=== PATIENT | female | born 1990 | race Caucasian/White ===

== ENCOUNTER 2022-01-09 10:38 | Emergency (ER) | payer MEDICAID ==
[~2022-01-09] VITALS: Ht 160 cm; Wt 115.0 kg
[2022-01-09 11:06] LABS: BILIRUBIN,URINE NEGATIVE (NEGATIVE); CLARITY,URINE CLEAR; COLOR,URINE YELLOW; GLUCOSE, URINE (UA) NEGATIVE (NEGATIVE); KETONES,URINE NEGATIVE (NEGATIVE); LEUKOCYTE ESTERASE ,URINE NEGATIVE (NEGATIVE); NITRITE,URINE NEGATIVE (NEGATIVE); PROTEIN,URINE 1+ (NEGATIVE)
--- NOTE | 2022-01-09 11:11 | ED Abdominal Pain ---
General Chief Complaint: Abdominal/GI Problems Stated Complaint: ABD PAIND Source of Information: Patient Exam Limitations: No Limitations (MAURI MERRILL) History of Present Illness Date Seen by Provider: Jan 09, 2022 Time Seen by Provider: 11:09 Initial Comments Patient is a 31-year-old female with a history of cholecystectomy, who presents ED with generalized abdominal pain. Pain appears to worst above her umbilicus. Started this morning when she woke up. Pain is constant described as sharp rated 10 out of 10. Patient noted hardness to her mid abdomen. She denies nausea, vomiting, diarrhea or urinary symptoms. Patient Has not eaten today. Denies of any chest pain, shortness of breath, visual changes, vaginal bleeding, concern for or vaginal discharge, headache, dizziness (MAURI MERRILL) Allergies and Home Medications Allergies Coded Allergies: Sulfa (Sulfonamide Antibiotics) (Verified Allergy, Unknown, 01/09/22) Patient Home Medication List Home Medication List Reviewed: Yes (MAURI MERRILL) Hydrocodone/Acetaminophen (Hydrocodone-Acetamin 5-325 mg) 5 Mg-325 Mg Tablet, 1 TAB PO Q4H PRN for PAIN-MODERATE (5-7) Prescribed by: DORA BENEDICT on 01/09/22 1214 Review of Systems Review of Systems Constitutional: No chills, No diaphoresis, No malaise EENTM: No Blurred Vision, No Eye Pain Respiratory: Denies Cough, Denies Orthopnea, Denies SOA With Exertion, Denies SOA at Rest Cardiovascular: Denies Chest Pain Gastrointestinal: Abdominal Pain; Denies Diarrhea, Denies Nausea, Denies Vomiting Genitourinary: Denies Burning, Denies Discharge, Denies Drainage, Denies Frequency Musculoskeletal: No back pain, No joint pain Skin: No change in color, No change in hair/nails Psychiatric/Neurological: Denies Anxiety, Denies Depressed (MAURI MERRILL) All Other Systems Reviewed Negative Unless Noted: Yes (MAURI MERRILL) Physical Exam Vital Signs Vital Signs - First Documented 01/09/22 10:58 Temp 37.0 Pulse 84 Resp 16 B/P (MAP) 139/88 (105) (ASHLEIGH COBB MD) Vital Signs Capillary Refill : (MAURI MERRILL) Height/Weight/BMI Height: '" Weight: lbs. oz. kg; BMI Method: General Appearance: WD/WN, no apparent distress HEENT: PERRL/EOMI, normal ENT inspection, TMs normal, pharynx normal Neck: non-tender, full range of motion, supple Respiratory: chest non-tender, lungs clear, normal breath sounds, no respiratory distress, no accessory muscle use Cardiovascular: regular rate, rhythm, no edema, no gallop, no JVD Gastrointestinal: normal bowel sounds, soft, no organomegaly, tenderness (Tenderness above the umbilicus with no obvious mass. Left lower quadrant tenderness, epigastric tenderness. Normal bowel sounds throughout.) Extremities: normal range of motion, non-tender, normal inspection, no pedal edema Back: normal inspection, no CVA tenderness Neurologic/Psychiatric: scutcher tender II-XII nml as tested, no motor/sensory deficits, alert, normal mood/affect Skin: normal color, warm/dry (MAURI MERRILL) Progress/Results/Core Measures Results/Orders Lab Results Laboratory Tests Test 01/09/22 11:00 01/09/22 11:10 Range/Units Urine Color YELLOW Urine Clarity CLEAR Urine pH 6.0 5-9 Urine Specific [place] 1.025 H 1.016-1.022 Urine Protein 1+ H NEGATIVE Urine Glucose (UA) NEGATIVE NEGATIVE Urine Ketones NEGATIVE NEGATIVE Urine Nitrite NEGATIVE NEGATIVE Urine Bilirubin NEGATIVE NEGATIVE Urine Urobilinogen 0.2 < = 1.0 MG/DL Urine Leukocyte Esterase NEGATIVE NEGATIVE Urine RBC (Auto) NEGATIVE NEGATIVE Urine RBC NONE /HPF Urine WBC RARE /HPF Urine Squamous Epithelial Cells 2-5 /HPF Urine Crystals NONE /LPF Urine Bacteria TRACE /HPF Urine Casts NONE /LPF Urine Mucus MODERATE H /LPF Urine Culture Indicated NO Urine Test NEGATIVE NEGATIVE White Blood Count 6.6 4.3-11.0 10^3/uL Red Blood Count 4.74 3.80-5.11 10^6/uL Hemoglobin 14.1 11.5-16.0 g/dL Hematocrit 41 35-52 % Mean Corpuscular Volume 87 80-99 fL Mean Corpuscular Hemoglobin 30 25-34 pg Mean Corpuscular Hemoglobin Concent 34 32-36 g/dL Red Cell Distribution Width 12.5 10.0-14.5 % Platelet Count 218 130-400 10^3/uL Mean Platelet Volume 10.1 9.0-12.2 fL Immature Granulocyte % (Auto) 0 % Neutrophils (%) (Auto) 49 42-75 % Lymphocytes (%) (Auto) 35 12-44 % Monocytes (%) (Auto) 10 0-12 % Eosinophils (%) (Auto) 4 0-10 % Basophils (%) (Auto) 2 0-10 % Neutrophils # (Auto) 3.3 1.8-7.8 10^3/uL Lymphocytes # (Auto) 2.3 1.0-4.0 10^3/uL Monocytes # (Auto) 0.6 0.0-1.0 10^3/uL Eosinophils # (Auto) 0.3 0.0-0.3 10^3/uL Basophils # (Auto) 0.1 0.0-0.1 10^3/uL Immature Granulocyte # (Auto) 0.0 0.0-0.1 10^3/uL Sodium Level 139 135-145 MMOL/L Potassium Level 4.5 3.6-5.0 MMOL/L Chloride Level 104 98-107 MMOL/L Carbon Dioxide Level 22 21-32 MMOL/L Anion Gap 13 5-14 MMOL/L Blood Urea Nitrogen 11 7-18 MG/DL Creatinine 0.70 0.60-1.30 MG/DL Estimat Glomerular Filtration Rate 117 BUN/Creatinine Ratio 16 Glucose Level 91 70-105 MG/DL Calcium Level 9.5 8.5-10.1 MG/DL Corrected Calcium 9.3 8.5-10.1 MG/DL Total Bilirubin 0.4 0.1-1.0 MG/DL Aspartate Amino Transf (AST/SGOT) 27 5-34 U/L Alanine Aminotransferase (ALT/SGPT) 34 0-55 U/L Alkaline Phosphatase 77 40-136 U/L Total Protein 7.9 6.4-8.2 GM/DL Albumin 4.3 3.2-4.5 GM/DL Lipase 29 8-78 U/L (ASHLEIGH COBB MD) My Orders Orders - ASHLEIGH COBB MD Ua Culture If Indicated (01/09/22 10:45) (ASHLEIGH COBB MD) Medications Given in ED Current Medications Medications Dose Ordered Sig/Wesley Route Start Time Stop Time Status Last Admin Dose Admin Iohexol 100 ml ONCE ONCE IV 01/09/22 11:15 01/09/22 11:16 DC 01/09/22 11:41 100 ML Sodium Chloride 100 ml ONCE ONCE IV 01/09/22 11:15 01/09/22 11:16 DC 01/09/22 11:41 100 ML (ASHLEIGH COBB MD) Vital Signs/I&O 01/09/22 01/09/22 10:58 12:20 Temp 37.0 37.0 Pulse 84 80 Resp 16 16 B/P (MAP) 139/88 (105) 135/95 (ASHLEIGH COBB MD) Departure Communication (PCP) Patient with left-sided abdominal tenderness and tenderness above the umbilicus. Slight induration but no obvious redness or swelling. She is concerned for possible hernia which may have diastases recti as when she elevates her head up while laying down slight prominence noted to the mid abdomen. Lab work was otherwise unremarkable. Due to her severe pain on palpations CT abdomen pelvis was ordered which was unremarkable. Was given a dose of pain medication. Denies nausea, vomiting, diarrhea. History of cholecystectomy. Due to reassuring lab work negative CT scan we will treat pain conservatively outpatient. If any worsening pain may return back to ED for further evaluation. She does not appear toxic or septic. Vital signs stable. (MAURI MERRILL) Impression Primary Impression: Abdominal pain Disposition: 01 HOME, SELF-CARE Condition: Stable Departure-Patient Inst. Decision time for Depature: 12:12 (MAURI MERRILL) Referrals: [facility]/[employer] [facility],LOCAL PHYSICIAN (PCP) Primary Care Physician Patient Instructions: Abdominal Pain, Adult ED Scripts Hydrocodone/Acetaminophen (Hydrocodone-Acetamin 5-325 mg) 5 Mg-325 Mg Tablet 1 TAB PO Q4H PRN for PAIN-MODERATE (5-7), #5 TAB Prov: MAURI MERRILL 01/09/22 Work/School Note: Work Release Form Date Seen in the Emergency Department: Jan 09, 2022 Return to Work: Jan 12, 2022 ATTENDING PHYSICIAN NOTE: I was physically present as attending physician in the emergency department during the care of this patient, but I was not directly involved in the decision making or delivery of care for this patient. (ASHLEIGH COBB MD) MAURI MERRILL Jan 09, 2022 11:11 ASHLEIGH COBB MD Jan 09, 2022 20:04
[2022-01-09] MEDS ORDERED: IOHEXOL 350 MG/ML 100 ML (OMNIPAQUE 350) VIAL IV ONE (11:15)
[2022-01-09] MEDS ORDERED: HOLD METFORMIN - RECEIVED CONTRAST 20 ML VIAL IV SCH (11:15)
[2022-01-09] MEDS ORDERED: NS 100 ML (IVPB) BAG IV ONE (11:15)
[2022-01-09 11:17] LABS: BASOPHILS # (AUTO) 0.1 10^3/uL (0.0-0.1); BASOPHILS % (AUTO) 2 % (0-10); EOSINOPHILS # (AUTO) 0.3 10^3/uL (0.0-0.3); EOSINOPHILS % (AUTO) 4 % (0-10); HEMATOCRIT 41 % (35-52); HEMOGLOBIN 14.1 g/dL (11.5-16.0); LYMPHOCYTES # (AUTO) 2.3 10^3/uL (1.0-4.0); LYMPHOCYTES % (AUTO) 35 % (12-44); MEAN CORPUSCULAR HEMOGLOBIN 30 pg (25-34); MEAN CORPUSCULAR HGB CONC 34 g/dL (32-36); MEAN CORPUSCULAR VOLUME 87 fL (80-99); MEAN PLATELET VOLUME 10.1 fL (9.0-12.2); MONOCYTES # (AUTO) 0.6 10^3/uL (0.0-1.0); MONOCYTES % (AUTO) 10 % (0-12); NEUTROPHILS # (AUTO) 3.3 10^3/uL (1.8-7.8); NEUTROPHILS % (AUTO) 49 % (42-75); PLATELET COUNT 218 10^3/uL (130-400); WHITE BLOOD COUNT 6.6 10^3/uL (4.3-11.0)
[2022-01-09 11:25] LABS: ALBUMIN 4.3 GM/DL (3.2-4.5); POTASSIUM 4.5 MMOL/L (3.6-5.0)
[2022-01-09 11:27] LABS: CALCIUM 9.5 MG/DL (8.5-10.1)
[2022-01-09 11:28] LABS: TOTAL PROTEIN 7.9 GM/DL (6.4-8.2)
[2022-01-09 11:30] LABS: BILIRUBIN,TOTAL 0.4 MG/DL (0.1-1.0)
[2022-01-09 11:32] LABS: BACTERIA,URINE TRACE /HPF; WBC,URINE RARE /HPF
[2022-01-09 11:32] LABS: CREATININE SERUM 0.7 MG/DL (0.60-1.30)
[2022-01-09] MEDS ORDERED: fentaNYL INJ 100 MCG/2 ML AMP IVP STA (11:39)
--- NOTE | 2022-01-09 12:06 | Diagnostic Imaging Report ---
CT ABDOMEN/PELVIS W TECHNIQUE: Multiple contiguous axial images were obtained through the abdomen and pelvis after administration of intravenous contrast. All CT scans use one or more of the following dose optimizing techniques: automated exposure control, MA and/or KvP adjustment based on patient size and exam type or iterative reconstruction. INDICATION: Mid and left lower quadrant abdominal pain. COMPARISON: None available. FINDINGS: Lower chest: The lung bases are clear. No pericardial or pleural effusion. Peritoneum: No free intraperitoneal air or fluid. Liver and biliary system: Mild low-attenuation liver may represent mild hepatic steatosis. No focal hepatic lesion. The portal vein is patent. Cholecystectomy. No biliary duct dilatation. Spleen and Pancreas: Spleen is normal. The pancreas enhances normally without mass lesion or peripancreatic inflammatory changes. Adrenals: Normal. tract: The kidneys enhance normally without suspicious mass or obstruction. Urinary bladder is distended without wall thickening. The uterus and ovaries are normal in appearance. GI tract: Stomach is decompressed. No bowel obstruction. No pericolonic inflammatory changes. Normal appendix. Vasculature and Lymph nodes: Normal caliber aorta. No abdominal or pelvic lymphadenopathy. Musculoskeletal: No concerning osseous lesion. No abdominal or inguinal hernia. IMPRESSION: No acute inflammatory or obstructive process in the abdomen. Dictated by: Dictated on workstation # [id number]
[2022-01-09] MEDS ORDERED: ACHD5005 PO (12:14)
[2022-01-09 12:20] VITALS: BP 135/95
== END 2022-01-09 12:26 | disposition home or self-care (01) ==
LOC: ER 10:42
DX: R10.84 Generalized abdominal pain (principal); Z90.49 Acquired absence of other specified parts of digestive tract; Z28.311 Partially vaccinated for COVID-19
CPT/HCPCS: 36415; 74177; 80053; 81000; 83690; 84703; 85025

== ENCOUNTER 2022-01-23 09:28 | Emergency (ER) | payer MEDICAID ==
[~2022-01-23] VITALS: Ht 160 cm; Wt 108.9 kg
[~2022-01-23 09:28] MED LIST: ACHD5005 PO
[2022-01-23 10:24] LABS: ALBUMIN 4.3 GM/DL (3.2-4.5); POTASSIUM 4.3 MMOL/L (3.6-5.0)
[2022-01-23 10:25] LABS: CALCIUM 9.5 MG/DL (8.5-10.1)
[2022-01-23 10:26] LABS: TOTAL PROTEIN 7.8 GM/DL (6.4-8.2)
[2022-01-23 10:27] LABS: BASOPHILS # (AUTO) 0.1 10^3/uL (0.0-0.1); BASOPHILS % (AUTO) 1 % (0-10); EOSINOPHILS # (AUTO) 0.2 10^3/uL (0.0-0.3); EOSINOPHILS % (AUTO) 2 % (0-10); HEMATOCRIT 40 % (35-52); HEMOGLOBIN 13.6 g/dL (11.5-16.0); LYMPHOCYTES # (AUTO) 2.3 10^3/uL (1.0-4.0); LYMPHOCYTES % (AUTO) 31 % (12-44); MEAN CORPUSCULAR HEMOGLOBIN 30 pg (25-34); MEAN CORPUSCULAR HGB CONC 34 g/dL (32-36); MEAN CORPUSCULAR VOLUME 89 fL (80-99); MEAN PLATELET VOLUME 10.1 fL (9.0-12.2); MONOCYTES # (AUTO) 0.6 10^3/uL (0.0-1.0); MONOCYTES % (AUTO) 7 % (0-12); NEUTROPHILS # (AUTO) 4.3 10^3/uL (1.8-7.8); NEUTROPHILS % (AUTO) 58 % (42-75); PLATELET COUNT 204 10^3/uL (130-400); WHITE BLOOD COUNT 7.4 10^3/uL (4.3-11.0)
[2022-01-23 10:28] LABS: BILIRUBIN,TOTAL 0.4 MG/DL (0.1-1.0)
--- NOTE | 2022-01-23 10:28 | ED Abdominal Pain ---
General Chief Complaint: Abdominal/GI Problems Stated Complaint: LLQ PAIN Nursing Triage Note: PT AMBULATE TO ROOM 08 WITHOUT DIFFICULTY WITH C/O ABD PAIN AND NAUSEA X2 DAYS. PT DENIES VOMITING. PT STATES SHE HAS TAKEN TYLENOL FOR PAIN WITHOUT RELIEF. PT STATES SHE MOVED TO [place] FROM [place] "A FEW DAYS AGO" AND DOES NOT HAVE A PCP. PT SEEN IN THIS ED ON 01/09/22 FOR SAME C/O. Source of Information: Patient Exam Limitations: No Limitations History of Present Illness Date Seen by Provider: Jan 23, 2022 Time Seen by Provider: 09:40 Initial Comments Patient is a 31-year-old female who presents to the emergency department with a chief complaint of upper abdominal pain ongoing for the last couple of days. Patient describes the pain as "cramping". It is made worse with movement and bending. It feels better when she is laying still. She endorses nausea without vomiting. She states she has been taking Tylenol without any relief of sympto ms, her last dose was yesterday at 5 PM. She denies dysuria, urgency or frequency. No diarrhea, her last bowel movement was yesterday nonblack nonbloody. She has had prior , tubal ligation and cholecystectomy. No abnormal vaginal discharge. Her last menstrual cycle was 2 months ago but she states they are always "irregular". No fevers or chills, no productive cough. No COVID concerns. She states that she recently moved to the area and does not have a PCP established as of yet. All other review of systems reviewed and negative except as stated. Note on review of the medical record the patient was seen in this emergency department on January 09 with similar complaints. She had extensive work-up with CT scan of the abdomen and pelvis done which were unremarkable. Patient did not volunteer any of this information during HPI. Timing/Duration: 1-2 Days Severity/Quality: Cramping Location: Generalized Abdomen Radiation: No Radiation Activities at Onset: None Modifying Factors: Improves With Lying down; Worsens With Movement Associated Symptoms: Nausea/Vomiting Allergies and Home Medications Allergies Coded Allergies: Sulfa (Sulfonamide Antibiotics) (Verified Allergy, Unknown, 01/09/22) Patient Home Medication List Home Medication List Reviewed: Yes Hydrocodone/Acetaminophen (Hydrocodone-Acetamin 5-325 mg) 5 Mg-325 Mg Tablet, 1 TAB PO Q4H PRN for PAIN-MODERATE (5-7) Prescribed by: DORA BENEDICT on 01/09/22 1214 Review of Systems Review of Systems Constitutional: see HPI EENTM: No Symptoms Reported Respiratory: No Symptoms Reported Cardiovascular: No Symptoms Reported Gastrointestinal: Abdominal Pain, Nausea Genitourinary: No Symptoms Reported Musculoskeletal: no symptoms reported Skin: no symptoms reported Psychiatric/Neurological: No Symptoms Reported All Other Systems Reviewed Negative Unless Noted: Yes Past Iudfmey-Vgpwlv-Kkzutg Hx Patient Social History Tobacco Use?: Yes Tobacco type used: Cigarettes Smoking Status: Current Everyday Smoker Smokeless Tobacco Frequency: Never a User Use of E-Cig and/or Vaping dev: No Use of E-Cig and/or Vaping John: Never a User Substance use?: No Alcohol Use?: No Pt feels they are or have been: No Immunizations Up To Date First/Initial COVID19 Vaccinat: 2020 Second COVID19 Vaccination Mike: NONE Third COVID19 Vaccination Date: NONE 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 oz. kg; 42.00 BMI Method: General Appearance: WD/WN, no apparent distress HEENT: PERRL/EOMI Respiratory: lungs clear, normal breath sounds, no respiratory distress, no accessory muscle use Cardiovascular: regular rate, rhythm Gastrointestinal: soft, tenderness (Tenderness that appears to be musculoskeletal across the anterior abdominal wall. She is not distended. She has quiet bowel sounds.) Extremities: normal range of motion, normal inspection Neurologic/Psychiatric: no motor/sensory deficits, alert, normal mood/affect, oriented x 3 Skin: normal color, warm/dry Progress/Results/Core Measures Results/Orders Lab Results Laboratory Tests Test 01/23/22 09:50 01/23/22 10:22 Range/Units White Blood Count 7.4 4.3-11.0 10^3/uL Red Blood Count 4.54 3.80-5.11 10^6/uL Hemoglobin 13.6 11.5-16.0 g/dL Hematocrit 40 35-52 % Mean Corpuscular Volume 89 80-99 fL Mean Corpuscular Hemoglobin 30 25-34 pg Mean Corpuscular Hemoglobin Concent 34 32-36 g/dL Red Cell Distribution Width 12.9 10.0-14.5 % Platelet Count 204 130-400 10^3/uL Mean Platelet Volume 10.1 9.0-12.2 fL Immature Granulocyte % (Auto) 0 % Neutrophils (%) (Auto) 58 42-75 % Lymphocytes (%) (Auto) 31 12-44 % Monocytes (%) (Auto) 7 0-12 % Eosinophils (%) (Auto) 2 0-10 % Basophils (%) (Auto) 1 0-10 % Neutrophils # (Auto) 4.3 1.8-7.8 10^3/uL Lymphocytes # (Auto) 2.3 1.0-4.0 10^3/uL Monocytes # (Auto) 0.6 0.0-1.0 10^3/uL Eosinophils # (Auto) 0.2 0.0-0.3 10^3/uL Basophils # (Auto) 0.1 0.0-0.1 10^3/uL Immature Granulocyte # (Auto) 0.0 0.0-0.1 10^3/uL Sodium Level 139 135-145 MMOL/L Potassium Level 4.3 3.6-5.0 MMOL/L Chloride Level 106 98-107 MMOL/L Carbon Dioxide Level 26 21-32 MMOL/L Anion Gap 7 5-14 MMOL/L Blood Urea Nitrogen 8 7-18 MG/DL Creatinine 0.77 0.60-1.30 MG/DL Estimat Glomerular Filtration Rate 104 BUN/Creatinine Ratio 10 Glucose Level 68 L 70-105 MG/DL Calcium Level 9.5 8.5-10.1 MG/DL Corrected Calcium 9.3 8.5-10.1 MG/DL Total Bilirubin 0.4 0.1-1.0 MG/DL Aspartate Amino Transf (AST/SGOT) 18 5-34 U/L Alanine Aminotransferase (ALT/SGPT) 28 0-55 U/L Alkaline Phosphatase 79 40-136 U/L Total Protein 7.8 6.4-8.2 GM/DL Albumin 4.3 3.2-4.5 GM/DL Urine Color YELLOW Urine Clarity CLEAR Urine pH 7.0 5-9 Urine Specific [place] 1.020 1.016-1.022 Urine Protein 1+ H NEGATIVE Urine Glucose (UA) NEGATIVE NEGATIVE Urine Ketones NEGATIVE NEGATIVE Urine Nitrite NEGATIVE NEGATIVE Urine Bilirubin NEGATIVE NEGATIVE Urine Urobilinogen 0.2 < = 1.0 MG/DL Urine Leukocyte Esterase NEGATIVE NEGATIVE Urine RBC (Auto) NEGATIVE NEGATIVE Urine RBC NONE /HPF Urine WBC NONE /HPF Urine Squamous Epithelial Cells 5-10 /HPF Urine Crystals NONE /LPF Urine Bacteria NEGATIVE /HPF Urine Casts NONE /LPF Urine Mucus MODERATE H /LPF Urine Culture Indicated NO My Orders Orders - DEANDRA GURROLA MD Ed Iv/Invasive Line Start (01/23/22 10:16) Cbc With Automated Diff (01/23/22 10:16) Comprehensive Metabolic Panel (01/23/22 10:16) Ua Culture If Indicated (01/23/22 10:16) Urine Bedside (01/23/22 10:16) Ns Iv 1000 Ml (Sodium Chloride 0.9%) (01/23/22 10:30) Ketorolac Injection (Toradol Injection) (01/23/22 10:30) Medications Given in ED Current Medications Medications Dose Ordered Sig/Wesley Route Start Time Stop Time Status Last Admin Dose Admin Ketorolac Tromethamine 15 mg ONCE ONCE IVP 01/23/22 10:30 01/23/22 10:31 DC 01/23/22 10:26 15 MG Vital Signs/I&O 01/23/22 09:34 Temp 35.7 Pulse 87 Resp 16 B/P (MAP) 148/94 (112) O2 Delivery Room Air Blood Pressure Mean: 112 Progress Progress Note : Time: 11:07 Progress Note Patient's labs reviewed, all within normal limits except for a mildly decreased serum glucose. She is feeling better after Toradol and Zofran. She is hungry. I did provide her with some peanut butter and crackers. We discussed treatment at home switching to Aleve from the Tylenol. [place] diet for today. Return precautions provided she verbalized understanding, all questions are sought and answered. Patient is stable for discharge Departure Impression Primary Impression: Abdominal pain Qualified Codes: R10.84 - Generalized abdominal pain Disposition: 01 HOME, SELF-CARE Condition: Stable Departure-Patient Inst. Decision time for Depature: 11:08 Referrals: [facility],LOCAL PHYSICIAN (PCP) Primary Care Physician Patient Instructions: Abdominal Pain, Adult ED Add. Discharge Instructions: Drink plenty of fluids to stay well-hydrated today. Follow a bland diet. Dipv-kwu-yqneaxu naproxen or Aleve 2 tablets with food every 12 hours as needed for pain. If you develop a fever over 101, have worse pain or vomiting please come back to the emergency department for reevaluation. Follow-up with [facility] for further care and continuance of your daily medications. Their contact information and address has been provided for you on this paper. Copy Copies To 1: KAYLYNN FOFANA KATHRYN M MD Jan 23, 2022 10:28
[2022-01-23 10:30] LABS: CREATININE SERUM 0.77 MG/DL (0.60-1.30)
[2022-01-23] MEDS ORDERED: KETOROLAC 30 MG/ML VIAL IVP ONE (10:30)
[2022-01-23] MEDS ORDERED: NS IV 1000 ML 1,000 ML IV SCH (10:30)
[2022-01-23 10:33] LABS: BILIRUBIN,URINE NEGATIVE (NEGATIVE); CLARITY,URINE CLEAR; COLOR,URINE YELLOW; GLUCOSE, URINE (UA) NEGATIVE (NEGATIVE); KETONES,URINE NEGATIVE (NEGATIVE); LEUKOCYTE ESTERASE ,URINE NEGATIVE (NEGATIVE); NITRITE,URINE NEGATIVE (NEGATIVE); PROTEIN,URINE 1+ (NEGATIVE)
[2022-01-23 10:44] LABS: BACTERIA,URINE NEGATIVE /HPF
[2022-01-23 11:27] VITALS: BP 137/68
== END 2022-01-23 11:27 | disposition home or self-care (01) ==
LOC: EDUNIT# 09:28 → ER 09:29
DX: R10.84 Generalized abdominal pain (principal); R11.0 Nausea; F17.210 Nicotine dependence, cigarettes, uncomplicated; Z90.49 Acquired absence of other specified parts of digestive tract
CPT/HCPCS: 36415; 80053; 81000; 84703; 85025

== ENCOUNTER 2022-08-02 14:07 | Emergency (ER) | payer MEDICAID ==
[~2022-08-02] VITALS: Ht 160 cm; Wt 113.0 kg
[2022-08-02] MEDS ORDERED: AMOX1TAB12 PO (14:39)
--- NOTE | 2022-08-02 14:39 | ED EENT ---
History of Present Illness General Stated Complaint: EAR PAIN Source: patient Exam Limitations: no limitations History of Present Illness Date Seen by Provider: Aug 02, 2022 Time Seen by Provider: 14:25 Initial Comments 32-year-old female presents with complaints of right ear pain starting 2 days ago. States she has also had cold symptoms for the last 2 weeks, with runny nose and nasal congestion, and a sinus headache. Reports her ear canal feels swollen, reports yellow drainage that is possibly cerumen from the ear. Denies fever, sore throat, chest pain, abdominal pain, nausea, vomiting, diarrhea. Reports some shortness of air, states is from her asthma. Past medical history includes asthma and hypertension. Currently taking metoprolol, lisinopril, albuterol inhaler. Allergies and Home Medications Allergies Coded Allergies: Sulfa (Sulfonamide Antibiotics) (Verified Allergy, Unknown, 01/09/22) Patient Home Medication List Home Medication List Reviewed: Yes Amoxicillin/Potassium Clav (Amox Tr-K Clv 875-125 mg Tab) 875 Mg-125 Mg Tablet, 1 EACH PO BID Prescribed by: Kristi Lizama on 08/02/22 1439 Hydrocodone/Acetaminophen (Hydrocodone-Acetamin 5-325 mg) 5 Mg-325 Mg Tablet, 1 TAB PO Q4H PRN for PAIN-MODERATE (5-7) Prescribed by: DORA BENEDICT on 01/09/22 1214 Review of Systems Review of Systems Constitutional: see HPI Past Ndaiump-Gkrkwt-Vmldau Hx Immunizations Up To Date First/Initial COVID19 Vaccinat: 2020 Second COVID19 Vaccination Mike: NONE Third COVID19 Vaccination Date: NONE Past Medical History Surgery/Hospitalization HX: HTN, ASTHMA, GERD, IBS , TONSILS, NASAL SURGERY, TUBAL, DAIANA Physical Exam Vital Signs Vital Signs - First Documented 08/02/22 14:17 Temp 36.8 Pulse 79 Resp 18 B/P (MAP) 140/96 (111) Pulse Ox 96 O2 Delivery Room Air Height, Weight, BMI Height: '" Weight: lbs. oz. kg; 42.00 BMI Method: General Appearance: WD/WN, no apparent distress Ears: right ear erythema, right ear tenderness, right ear TM red; left ear canal normal, left ear TM normal; bilateral ear auricle normal, bilateral ear other (No drainage) Neck: supple, normal inspection Cardiovascular: regular rate, rhythm, no edema, no gallop, no JVD, no murmur Respiratory: lungs clear, normal breath sounds, no respiratory distress, no accessory muscle use Neurologic/Psychiatric: alert, normal mood/affect, oriented x 3 Skin: normal color, warm/dry Progress/Results/Core Measures Results/Orders My Orders Orders - KRISTI LIZAMA APRN Amoxicillin/Clavulanate Tablet (Augmenti (08/02/22 14:45) Medications Given in ED Current Medications Medications Dose Ordered Sig/Wesley Route Start Time Stop Time Status Last Admin Dose Admin Amoxicillin/ Clavulanate Potassium 875 mg ONCE ONCE PO 08/02/22 14:45 08/02/22 14:46 DC 08/02/22 14:53 875 MG Vital Signs/I&O 08/02/22 08/02/22 14:17 14:56 Temp 36.8 Pulse 79 73 Resp 18 18 B/P (MAP) 140/96 (111) 134/89 Pulse Ox 96 95 O2 Delivery Room Air Room Air Progress Progress Note : Time: 14:36 Progress Note Patient seen and evaluated, resting comfortably in bed, no acute distress. Based on exam and symptoms, concern for otitis media and sinus infection. Will treat with Augmentin. Patient given discharge instructions and return precautions. Departure Impression Primary Impression: Otitis media Additional Impression: Rhinosinusitis Disposition: 01 HOME, SELF-CARE Condition: Stable Departure-Patient Inst. Decision time for Depature: 14:36 Referrals: NO,LOCAL PHYSICIAN (PCP/Family) Primary Care Physician Patient Instructions: Sinusitis in Adults, Ear Infections (Otitis Media) in Adults (DC) Add. Discharge Instructions: Complete full course of antibiotics, even given to feel better. Return for worsening pain, fevers greater than 100.4, swelling of your face, or any other new, concerning, or worsening symptoms. Continue taking Tylenol and ibuprofen as needed for pain. Follow-up with your primary care provider. Scripts Amoxicillin/Potassium Clav (Amox Tr-K Clv 875-125 mg Tab) 875 Mg-125 Mg Tablet 1 EACH PO BID for 7 Days, #14 TAB 0 Refills Prov: KRISTI LIZAMA APRN 08/02/22 KRISTI LIZAMA APRN Aug 02, 2022 14:39
[2022-08-02] MEDS ORDERED: AUGMENTIN 875 MG TAB (AMOXICILLIN/CLAVULANATE) PO ONE (14:45)
[2022-08-02 14:56] VITALS: BP 134/89
== END 2022-08-02 14:57 | disposition home or self-care (01) ==
LOC: EDUNIT# 14:07 → ER 14:10
DX: H66.91 Otitis media, unspecified, right ear (principal); J32.9 Chronic sinusitis, unspecified; J45.909 Unspecified asthma, uncomplicated; I10 Essential (primary) hypertension; Z79.51 Long term (current) use of inhaled steroids; Z79.899 Other long term (current) drug therapy; Z88.1 Allergy status to other antibiotic agents
CPT/HCPCS: 99283

== ENCOUNTER 2022-09-18 07:13 | Emergency (ER) | payer MEDICAID ==
[~2022-09-18] VITALS: Ht 160 cm; Wt 111.3 kg
[~2022-09-18 07:13] MED LIST changes: +AMOX1TAB12 PO
--- NOTE | 2022-09-18 07:20 | ED General ---
General Stated Complaint: FEELING OFF History of Present Illness Date Seen by Provider: Sep 18, 2022 Time Seen by Provider: 07:16 Initial Comments 32-year-old female reports that she fell like she was "going to pass out" patient reports that she got up this morning and when she went to the restroom felt like she was going to pass out. She had a "hang onto the door frame" patient did not have any syncopal episode. Does report a history of asthma and feels like maybe her chest is a little tight. No reports of fevers chills nausea vomiting or other systemic complaints. Allergies and Home Medications Allergies Coded Allergies: Sulfa (Sulfonamide Antibiotics) (Verified Allergy, Unknown, 01/09/22) Patient Home Medication List Home Medication List Reviewed: Yes Amoxicillin/Potassium Clav (Amox Tr-K Clv 875-125 mg Tab) 875 Mg-125 Mg Tablet, 1 EACH PO BID Prescribed by: Kristi Lizama on 08/02/22 1439 Hydrocodone/Acetaminophen (Hydrocodone-Acetamin 5-325 mg) 5 Mg-325 Mg Tablet, 1 TAB PO Q4H PRN for PAIN-MODERATE (5-7) Prescribed by: DORA BENEDICT on 01/09/22 1214 Review of Systems Review of Systems Constitutional: No chills, No dizziness, No fever EENTM: no symptoms reported Respiratory: see HPI; No cough, No wheezing Cardiovascular: No chest pain, No palpitations Gastrointestinal: no symptoms reported Genitourinary: no symptoms reported Musculoskeletal: no symptoms reported Skin: no symptoms reported Psychiatric/Neurological: No Symptoms Reported Past Utctkzz-Sucefc-Wdzcnx Hx Immunizations Up To Date First/Initial COVID19 Vaccinat: 2020 Second COVID19 Vaccination Mike: NONE Third COVID19 Vaccination Date: NONE Past Medical History Surgery/Hospitalization HX: HTN, ASTHMA, GERD, IBS , TONSILS, NASAL SURGERY, TUBAL, DAIANA Physical Exam Vital Signs Vital Signs - First Documented 09/18/22 07:15 Temp 36.1 Pulse 66 Resp 17 B/P (MAP) 115/69 (84) Pulse Ox 97 O2 Delivery Room Air Capillary Refill : Height, Weight, BMI Height: '" Weight: lbs. oz. kg; 44.00 BMI Method: General Appearance: No Apparent Distress, WD/WN Neck: Normal Inspection, Non Tender Respiratory: Lungs Clear, Normal Breath Sounds, No Accessory Muscle Use, No Respiratory Distress Cardiovascular: Regular Rate, Rhythm Gastrointestinal: Non Tender Extremity: Normal Capillary Refill, Normal Inspection, Normal Range of Motion Neurologic/Psychiatric: Alert, Oriented x3, No Motor/Sensory Deficits, Normal Mood/Affect, r d intern II-XII Norm as Tested Progress/Results/Core Measures Suspected Sepsis SIRS Temperature: Pulse: Respiratory Rate: Laboratory Tests 09/18/22 08:24: White Blood Count 7.8 Blood Pressure / Mean: Laboratory Tests 09/18/22 08:24: Creatinine 0.65, Platelet Count 165, Total Bilirubin 0.3 Results/Orders Lab Results Laboratory Tests Test 09/18/22 07:42 09/18/22 08:24 Range/Units Urine Color YELLOW Urine Clarity CLEAR Urine pH 6.0 5-9 Urine Specific [place] >=1.030 1.016-1.022 Urine Protein 2+ H NEGATIVE Urine Glucose (UA) NEGATIVE NEGATIVE Urine Ketones TRACE H NEGATIVE Urine Nitrite NEGATIVE NEGATIVE Urine Bilirubin NEGATIVE NEGATIVE Urine Urobilinogen 1.0 < = 1.0 MG/DL Urine Leukocyte Esterase TRACE H NEGATIVE Urine RBC (Auto) 3+ H NEGATIVE Urine RBC TNTC H /HPF Urine WBC 2-5 /HPF Urine Squamous Epithelial Cells 5-10 /HPF Urine Crystals NONE /LPF Urine Bacteria FEW H /HPF Urine Casts NONE /LPF Urine Mucus NEGATIVE /LPF Urine Culture Indicated YES White Blood Count 7.8 4.3-11.0 10^3/uL Red Blood Count 4.11 3.80-5.11 10^6/uL Hemoglobin 12.6 11.5-16.0 g/dL Hematocrit 36 35-52 % Mean Corpuscular Volume 87 80-99 fL Mean Corpuscular Hemoglobin 31 25-34 pg Mean Corpuscular Hemoglobin Concent 35 32-36 g/dL Red Cell Distribution Width 12.2 10.0-14.5 % Platelet Count 165 130-400 10^3/uL Mean Platelet Volume 10.4 9.0-12.2 fL Immature Granulocyte % (Auto) 0 % Neutrophils (%) (Auto) 51 42-75 % Lymphocytes (%) (Auto) 39 12-44 % Monocytes (%) (Auto) 8 0-12 % Eosinophils (%) (Auto) 2 0-10 % Basophils (%) (Auto) 1 0-10 % Neutrophils # (Auto) 3.9 1.8-7.8 10^3/uL Lymphocytes # (Auto) 3.0 1.0-4.0 10^3/uL Monocytes # (Auto) 0.6 0.0-1.0 10^3/uL Eosinophils # (Auto) 0.1 0.0-0.3 10^3/uL Basophils # (Auto) 0.1 0.0-0.1 10^3/uL Immature Granulocyte # (Auto) 0.0 0.0-0.1 10^3/uL Sodium Level 140 135-145 MMOL/L Potassium Level 3.7 3.6-5.0 MMOL/L Chloride Level 109 H 98-107 MMOL/L Carbon Dioxide Level 22 21-32 MMOL/L Anion Gap 9 5-14 MMOL/L Blood Urea Nitrogen 9 7-18 MG/DL Creatinine 0.65 0.60-1.30 MG/DL Estimat Glomerular Filtration Rate 118 BUN/Creatinine Ratio 14 Glucose Level 105 70-105 MG/DL Calcium Level 9.3 8.5-10.1 MG/DL Corrected Calcium 9.3 8.5-10.1 MG/DL Magnesium Level 1.7 1.6-2.4 MG/DL Total Bilirubin 0.3 0.1-1.0 MG/DL Aspartate Amino Transf (AST/SGOT) 17 5-34 U/L Alanine Aminotransferase (ALT/SGPT) 23 0-55 U/L Alkaline Phosphatase 71 40-136 U/L Troponin I < 0.028 <0.028 NG/ML C-Reactive Protein High Sensitivity 0.34 0.00-0.50 MG/DL Total Protein 6.8 6.4-8.2 GM/DL Albumin 4.0 3.2-4.5 GM/DL My Orders Orders - MORALES,ROBI L DO Cbc With Automated Diff (09/18/22 07:21) Comprehensive Metabolic Panel (09/18/22 07:21) Hs C Reactive Protein (09/18/22 07:21) Magnesium (09/18/22 07:21) Troponin I Leana (09/18/22 07:21) Ua Culture If Indicated (09/18/22 07:21) Ed Iv/Invasive Line Start (09/18/22 07:21) Ekg Tracing (09/18/22 07:21) Monitor-Rhythm Ecg Trace Only (09/18/22 07:21) Albuterol Pre-Mix Nebs (Rt) (Proventil (09/18/22 07:21) Svn Small Volume Nebulizer (09/18/22 07:21) Ns Iv 1000 Ml (Sodium Chloride 0.9%) (09/18/22 07:21) Urine Culture (09/18/22 07:42) Vital Signs/I&O 09/18/22 09/18/22 07:15 07:47 Temp 36.1 Pulse 66 Resp 17 B/P (MAP) 115/69 (84) Pulse Ox 97 99 O2 Delivery Room Air Room Air Capillary Refill : Progress Note : Progress Note Patient's diagnostic studies were ordered, reviewed and interpreted by me. Patient's EKG showed normal sinus rhythm, heart rate [address] changes or elevation with some questionable LVH. Patient's labs did show concerns for a likely urinary tract infection. Patient is labs otherwise negative. Patient vital signs were stable throughout the stay. Patient physical exam was benign. Patient will be treated with Macrobid for a urinary tract infection. She is stable and discharged home. ECG Initial ECG Impression Date: Sep 18, 2022 Initial ECG Impression Time: 07:36 Initial ECG Rate: 687 Initial ECG Rhythm: Normal Sinus Initial ECG Intervals: Normal Comment questionable LVH, no acute st elevation or changes. Departure Impression Primary Impression: Urinary tract infection Qualified Codes: N30.01 - Acute cystitis with hematuria Disposition: HOME, SELF-CARE Condition: Stable Departure-Patient Inst. Referrals: NO,LOCAL PHYSICIAN (PCP/Family) Primary Care Physician Patient Instructions: Urinary Tract Infection, Adult (DC) Add. Discharge Instructions: Please follow-up with your primary care provider in 1 week for recheck of your urine to ensure infection is cleared Scripts Nitrofurantoin Macrocrystal (Nitrofurantoin) 100 Mg Capsule 100 MG PO BID, #14 CAP 0 Refills Prov: ROBI MORALES DO 09/18/22 ROBI MORALES DO Sep 18, 2022 07:20
[2022-09-18] MEDS ORDERED: RT-ALBUTEROL SULF 2.5 MG/3 ML PRE-MIX VIAL INH STA (07:21)
[2022-09-18] MEDS ORDERED: NS IV 1000 ML 1,000 ML IV STA (07:21)
[2022-09-18 07:48] LABS: BILIRUBIN,URINE NEGATIVE (NEGATIVE); CLARITY,URINE CLEAR; COLOR,URINE YELLOW; GLUCOSE, URINE (UA) NEGATIVE (NEGATIVE); KETONES,URINE TRACE (NEGATIVE); LEUKOCYTE ESTERASE ,URINE TRACE (NEGATIVE); NITRITE,URINE NEGATIVE (NEGATIVE); PROTEIN,URINE 2+ (NEGATIVE)
[2022-09-18 07:59] LABS: BACTERIA,URINE FEW /HPF; RBC,URINE TNTC /HPF
[2022-09-18 08:29] LABS: BASOPHILS # (AUTO) 0.1 10^3/uL (0.0-0.1); BASOPHILS % (AUTO) 1 % (0-10); EOSINOPHILS # (AUTO) 0.1 10^3/uL (0.0-0.3); EOSINOPHILS % (AUTO) 2 % (0-10); HEMATOCRIT 36 % (35-52); HEMOGLOBIN 12.6 g/dL (11.5-16.0); LYMPHOCYTES % (AUTO) 39 % (12-44); MEAN CORPUSCULAR HEMOGLOBIN 31 pg (25-34); MEAN CORPUSCULAR HGB CONC 35 g/dL (32-36); MEAN CORPUSCULAR VOLUME 87 fL (80-99); MEAN PLATELET VOLUME 10.4 fL (9.0-12.2); MONOCYTES # (AUTO) 0.6 10^3/uL (0.0-1.0); MONOCYTES % (AUTO) 8 % (0-12); NEUTROPHILS # (AUTO) 3.9 10^3/uL (1.8-7.8); NEUTROPHILS % (AUTO) 51 % (42-75); PLATELET COUNT 165 10^3/uL (130-400); WHITE BLOOD COUNT 7.8 10^3/uL (4.3-11.0)
[2022-09-18 08:40] LABS: CHLORIDE 109 MMOL/L (98-107); POTASSIUM 3.7 MMOL/L (3.6-5.0); SODIUM 140 MMOL/L (135-145)
[2022-09-18 08:41] LABS: CALCIUM 9.3 MG/DL (8.5-10.1)
[2022-09-18 08:42] LABS: GLUCOSE 105 MG/DL (70-105); TOTAL PROTEIN 6.8 GM/DL (6.4-8.2)
[2022-09-18 08:43] LABS: CARBON DIOXIDE 22 MMOL/L (21-32)
[2022-09-18 08:44] LABS: BILIRUBIN,TOTAL 0.3 MG/DL (0.1-1.0)
[2022-09-18 08:45] LABS: ALKALINE PHOSPHATASE 71 U/L (40-136)
[2022-09-18 08:46] LABS: CREATININE SERUM 0.65 MG/DL (0.60-1.30); GFR ESTIMATED 118
[2022-09-18 08:47] LABS: BUN/CREATININE RATIO 14
[2022-09-18 08:49] LABS: ALANINE AMINOTRANSFERASE 23 U/L (0-55); MAGNESIUM 1.7 MG/DL (1.6-2.4)
[2022-09-18] MEDS ORDERED: NITR100C PO (09:14)
[2022-09-18 09:31] VITALS: BP 129/93
== END 2022-09-18 09:31 | disposition home or self-care (01) ==
LOC: EDUNIT# 07:13 → ER 07:15
DX: N39.0 Urinary tract infection, site not specified (principal); Z28.311 Partially vaccinated for COVID-19; Z88.2 Allergy status to sulfonamides
CPT/HCPCS: 36415; 80053; 81000; 83735; 84484; 85025; 86141; 87088; 93005; 93041; 94640

== ENCOUNTER 2022-10-01 19:53 | Emergency (ER) | payer MEDICAID ==
[~2022-10-01] VITALS: Ht 160 cm; Wt 108.9 kg
[~2022-10-01 19:53] MED LIST changes: +NITR100C PO
--- NOTE | 2022-10-01 20:14 | ED Respiratory ---
General Chief Complaint: Cough/Cold/Flu Symptoms Stated Complaint: ASTHMA CONGESTION NAUSA History of Present Illness Date Seen by Provider: Oct 01, 2022 Time Seen by Provider: 20:14 Initial Comments 32-year-old female has a history of some asthma and allergies. She reports for the last 5 days she has had a lot of congestion nasal drainage. She has been taking allergy medicine for it. She reports that she "takes Benadryl" when she can afford it. She feels like her chest is just a little bit tight from her asthma. She denies any wheezing. Allergies and Home Medications Allergies Coded Allergies: Sulfa (Sulfonamide Antibiotics) (Verified Allergy, Unknown, 01/09/22) Patient Home Medication List Home Medication List Reviewed: Yes Amoxicillin/Potassium Clav (Amox Tr-K Clv 875-125 mg Tab) 875 Mg-125 Mg Tablet, 1 EACH PO BID Prescribed by: Kristi Lizama on 08/02/22 1439 Hydrocodone/Acetaminophen (Hydrocodone-Acetamin 5-325 mg) 5 Mg-325 Mg Tablet, 1 TAB PO Q4H PRN for PAIN-MODERATE (5-7) Prescribed by: DORA BENEDICT on 01/09/22 1214 Nitrofurantoin Macrocrystal (Nitrofurantoin) 100 Mg Capsule, 100 MG PO BID Prescribed by: ROBI MORALES on 09/18/22 0914 Review of Systems Review of Systems Constitutional: No chills, No fever, No malaise EENTM: nose congestion; No throat swelling Respiratory: cough; No short of breath, No wheezing Cardiovascular: no symptoms reported Gastrointestinal: no symptoms reported Genitourinary: no symptoms reported Musculoskeletal: no symptoms reported Skin: no symptoms reported Psychiatric/Neurological: No Symptoms Reported Hematologic/Lymphatic: No Symptoms Reported Past Endzvdj-Hjssnf-Oyqarm Hx Patient Social History Tobacco Use?: Yes Tobacco type used: Cigarettes Smoking Status: Current Someday Smoker Substance use?: No Alcohol Use?: No Pt feels they are or have been: No Immunizations Up To Date Influenza Vaccine Up-to-Date: Yes; Up-to-Date First/Initial COVID19 Vaccinat: 2020 Second COVID19 Vaccination Mike: NONE Third COVID19 Vaccination Date: NONE Past Medical History Surgery/Hospitalization HX: HTN, ASTHMA, GERD, IBS , TONSILS, NASAL SURGERY, TUBAL, DAIANA Physical Exam Vital Signs - First Documented 10/01/22 20:02 O2 Delivery Room Air O2 Flow Rate 97.00 Capillary Refill : Height: '" Weight: lbs. oz. kg; 43.00 BMI Method: General Appearance: WD/WN, no apparent distress HEENT: PERRL/EOMI, pharynx normal Neck: non-tender, supple, normal inspection Respiratory: lungs clear, normal breath sounds, no respiratory distress Cardiovascular: normal peripheral pulses, regular rate, rhythm Gastrointestinal: non tender, soft Neurologic/Psychiatric: alert, normal mood/affect, oriented x 3 Skin: normal color, warm/dry Progress/Results/Core Measures Suspected Sepsis SIRS Temperature: Pulse: Respiratory Rate: Blood Pressure / Mean: Results/Orders My Orders Orders - ROBI MORALES DO Dexamethasone Injection (Decadron Inje (10/01/22 20:15) Vital Signs/I&O 10/01/22 20:02 O2 Delivery Room Air O2 Flow Rate 97.00 Capillary Refill : Progress Note : Progress Note Patient's symptoms are consistent with seasonal allergies, allergic rhinitis and may be some very minimal asthma exacerbation. Patient was treated with 10 mg IM Decadron. I recommend she start Zyrtec once daily. She should follow-up with her primary care provider as needed. She is stable and discharged Departure Impression Primary Impression: Allergic rhinitis Qualified Codes: J30.2 - Other seasonal allergic rhinitis Additional Impression: History of asthma Disposition: HOME, SELF-CARE Condition: Stable Departure-Patient Inst. Referrals: NO,LOCAL PHYSICIAN (PCP/Family) Primary Care Physician Patient Instructions: Seasonal Allergies ED, Avoiding Asthma Triggers Add. Discharge Instructions: Zyrtec/cetirizine daily. This is available generic [id number]. Follow-up with your primary care provider if symptoms not improved over the next week. All discharge instructions reviewed with patient and/or family. Voiced understanding. Scripts Dexamethasone (Dexamethasone) 4 Mg Tablet 8 MG PO ONCE, #2 TAB please take on 10/03/22 Prov: ROBI MORALES DO 10/01/22 ROBI MORALES DO Oct 01, 2022 20:14
[2022-10-01] MEDS ORDERED: DEXA4TAB PO (20:20)
[2022-10-01 20:24] VITALS: BP 131/97
== END 2022-10-01 20:25 | disposition home or self-care (01) ==
LOC: EDUNIT# 19:53 → ER 19:56
DX: J30.9 Allergic rhinitis, unspecified (principal); Z87.09 Personal history of other diseases of the respiratory system; F17.210 Nicotine dependence, cigarettes, uncomplicated
CPT/HCPCS: 99284

== ENCOUNTER 2022-10-04 03:42 | Emergency (ER) | payer MEDICAID ==
[~2022-10-04 03:42] MED LIST changes: +DEXA4TAB PO
--- NOTE | 2022-10-04 04:08 | ED General ---
General Chief Complaint: General Problems/Pain Stated Complaint: DIZZY Nursing Triage Note: TO ED VIA [facility] AND AMBULAT[facility] TO ROOM 7 FROM AMBULANCE. PT STATES TRIAGE CLINICIAN SHE "FELT WEAK" SO SHE CHECKED HER BLOOD SUGAR AND IT WAS 209 MG/DL. SHE DRANK WATER FOR THIS AND THEN A LITTLE WHILE LATER HER BLOOD SUGAR INCREASED TO 229 MG/DL. AT THIS TIME SHE STATED SHE CALLED 911 BECAUSE HER BLOOD SUGAR HAS NOT BEEN THIS HIGH IN YEARS. BLOOD SUGAR EN ROUTE FOR EMS WAS 179 MG/DL. Source of Information: Patient Exam Limitations: No Limitations History of Present Illness Date Seen by Provider: Oct 04, 2022 Time Seen by Provider: 03:58 Initial Comments This 32-year-old woman presents to the emergency room via EMS with primary concern about elevated blood sugar. 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 After stopping Abilify her blood sugars improved. She has been labeled as borderline diabetic as a an adult. Tonight she was feeling weak and checked her blood sugar. She found it to be in the 200s. She is concerned that she may again be diabetic. She additionally complains of urinary frequency. She has a pending appointment with [facility] but currently does not have a primary care provider. She has been seen recently in this emergency room and prescribed Macrobid for UTI. She also reports cough and congestion for over a week which is improving. She is afebrile. Allergies and Home Medications Allergies Coded Allergies: Sulfa (Sulfonamide Antibiotics) (Verified Allergy, Unknown, 01/09/22) Patient Home Medication List Home Medication List Reviewed: Yes Amoxicillin/Potassium Clav (Amox Tr-K Clv 875-125 mg Tab) 875 Mg-125 Mg Tablet, 1 EACH PO BID Prescribed by: Kristi Lizama on 08/02/22 1439 Dexamethasone (Dexamethasone) 4 Mg Tablet, 8 MG PO ONCE Prescribed by: ROBI MORALES on 10/01/222019 Hydrocodone/Acetaminophen (Hydrocodone-Acetamin 5-325 mg) 5 Mg-325 Mg Tablet, 1 TAB PO Q4H PRN for PAIN-MODERATE (5-7) Prescribed by: DORA EBNEDICT on 01/09/22 1214 Nitrofurantoin Macrocrystal (Nitrofurantoin) 100 Mg Capsule, 100 MG PO BID Prescribed by: ROBI MORALES on 09/18/22 0914 Review of Systems Review of Systems Constitutional: see HPI, weakness EENTM: see HPI Respiratory: see HPI Cardiovascular: no symptoms reported Gastrointestinal: no symptoms reported Genitourinary: see HPI : No Musculoskeletal: no symptoms reported Skin: no symptoms reported Psychiatric/Neurological: Headache Hematologic/Lymphatic: No Symptoms Reported Immunological/Allergic: no symptoms reported Past Hewerlq-Ulpecg-Yaattv Hx Patient Social History Tobacco Use?: No Substance use?: No Alcohol Use?: No Immunizations Up To Date Influenza Vaccine Up-to-Date: Yes; Up-to-Date First/Initial COVID19 Vaccinat: 2020 Second COVID19 Vaccination Mike: NONE Third COVID19 Vaccination Date: NONE 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 oz. kg; 42.00 BMI Method: General Appearance: No Apparent Distress, WD/WN, Obese HEENT: PERRL/EOMI, Normal ENT Inspection Neck: Normal Inspection Respiratory: Lungs Clear, Normal Breath Sounds, No Accessory Muscle Use Cardiovascular: Regular Rate, Rhythm, No Edema, No Murmur Gastrointestinal: Non Tender, Soft Extremity: Normal Inspection, No Pedal Edema Neurologic/Psychiatric: Alert, Oriented x3, No Motor/Sensory Deficits, Normal Mood/Affect, commercial loan underwriter II-XII Norm as Tested Skin: Normal Color, Warm/Dry Progress/Results/Core Measures Suspected Sepsis SIRS Temperature: Pulse: 95 Respiratory Rate: 16 Laboratory Tests 10/04/22 04:30: White Blood Count 7.0 Blood Pressure 146 /94 Mean: 111 Laboratory Tests 10/04/22 04:30: Creatinine 0.67, Platelet Count 204 Results/Orders Lab Results Laboratory Tests Test 10/04/22 03:53 10/04/22 04:10 10/04/22 04:30 Range/Units Glucometer 171 H 70-110 MG/DL Urine Color YELLOW Urine Clarity CLEAR Urine pH 6.5 5-9 Urine Specific [place] 1.010 L 1.016-1.022 Urine Protein NEGATIVE NEGATIVE Urine Glucose (UA) NEGATIVE NEGATIVE Urine Ketones NEGATIVE NEGATIVE Urine Nitrite NEGATIVE NEGATIVE Urine Bilirubin NEGATIVE NEGATIVE Urine Urobilinogen 0.2 < = 1.0 MG/DL Urine Leukocyte Esterase NEGATIVE NEGATIVE Urine RBC (Auto) NEGATIVE NEGATIVE Urine RBC NONE /HPF Urine WBC NONE /HPF Urine Squamous Epithelial Cells 2-5 /HPF Urine Crystals NONE /LPF Urine Bacteria NEGATIVE /HPF Urine Casts NONE /LPF Urine Mucus NEGATIVE /LPF Urine Culture Indicated NO White Blood Count 7.0 4.3-11.0 10^3/uL Red Blood Count 4.23 3.80-5.11 10^6/uL Hemoglobin 12.9 11.5-16.0 g/dL Hematocrit 37 35-52 % Mean Corpuscular Volume 88 80-99 fL Mean Corpuscular Hemoglobin 31 25-34 pg Mean Corpuscular Hemoglobin Concent 35 32-36 g/dL Red Cell Distribution Width 12.4 10.0-14.5 % Platelet Count 204 130-400 10^3/uL Mean Platelet Volume 10.3 9.0-12.2 fL Immature Granulocyte % (Auto) 2 % Neutrophils (%) (Auto) 77 H 42-75 % Lymphocytes (%) (Auto) 17 12-44 % Monocytes (%) (Auto) 4 0-12 % Eosinophils (%) (Auto) 0 0-10 % Basophils (%) (Auto) 0 0-10 % Neutrophils # (Auto) 5.3 1.8-7.8 10^3/uL Lymphocytes # (Auto) 1.2 1.0-4.0 10^3/uL Monocytes # (Auto) 0.3 0.0-1.0 10^3/uL Eosinophils # (Auto) 0.0 0.0-0.3 10^3/uL Basophils # (Auto) 0.0 0.0-0.1 10^3/uL Immature Granulocyte # (Auto) 0.1 0.0-0.1 10^3/uL Sodium Level 138 135-145 MMOL/L Potassium Level 4.2 3.6-5.0 MMOL/L Chloride Level 107 98-107 MMOL/L Carbon Dioxide Level 18 L 21-32 MMOL/L Anion Gap 13 5-14 MMOL/L Blood Urea Nitrogen 9 7-18 MG/DL Creatinine 0.67 0.60-1.30 MG/DL Estimat Glomerular Filtration Rate 118 BUN/Creatinine Ratio 13 Glucose Level 144 H 70-105 MG/DL Calcium Level 9.2 8.5-10.1 MG/DL Magnesium Level 2.1 1.6-2.4 MG/DL My Orders Orders - ASHLEIGH COBB MD Accucheck Stat ONCE (10/04/22 04:06) Ed Iv/Invasive Line Start (10/04/22 04:06) Basic Metabolic Panel (10/04/22 04:06) Cbc With Automated Diff (10/04/22 04:06) Magnesium (10/04/22 04:06) Ua Culture If Indicated (10/04/22 04:06) Vital Signs/I&O 10/04/22 10/04/22 10/04/22 03:42 03:42 05:15 Temp 36.7 36.7 Pulse 95 70 Resp 16 16 B/P (MAP) 146/94 (111) 125/77 Pulse Ox 95 95 O2 Delivery Room Air Room Air Room Air Capillary Refill : Less Than 3 Seconds Blood Pressure Mean: 111 Progress Note #1: Time: 04:34 Progress Note Patient was interviewed and examined. Blood sugar was 171 by fingerstick. She complains of urinary frequency and weakness. She would appreciate basic labs being obtained. A CBC, BMP, magnesium, and urinalysis are being processed. Disposition will be based on findings of these studies. She is hemodynamically stable, alert, and oriented. Progress Note #2: Progress Note Labs noted above were reviewed and interpreted by me. Patient had a low CO2 of 18, but labs were otherwise unremarkable. She was hemodynamically stable and not exhibiting any significant symptoms requiring treatment. She was provided reassurance and direction as discussed in discharge instructions. Departure Impression Primary Impression: Hyperglycemia Additional Impression: Generalized weakness Disposition: 01 HOME, SELF-CARE Condition: Stable Departure-Patient Inst. Decision time for Depature: 05:07 Referrals: NO,LOCAL PHYSICIAN (PCP/Family) Primary Care Physician Patient Instructions: High Blood Sugar, Adult Add. Discharge Instructions: Your work-up in the emergency room was relatively normal except for a mildly elevated blood sugar. Please follow-up with your primary care provider soon as possible for further diabetes testing. Until then, eat a low sugar, low carbohydrate diet and drink plenty of water. Return to care if you have worsening symptoms. All discharge instructions reviewed with patient and/or family. Voiced understanding. Copy Copies To 1: [facility] MD Oct 04, 2022 04:08
[2022-10-04 04:17] LABS: BILIRUBIN,URINE NEGATIVE (NEGATIVE); CLARITY,URINE CLEAR; COLOR,URINE YELLOW; GLUCOSE, URINE (UA) NEGATIVE (NEGATIVE); KETONES,URINE NEGATIVE (NEGATIVE); LEUKOCYTE ESTERASE ,URINE NEGATIVE (NEGATIVE); NITRITE,URINE NEGATIVE (NEGATIVE); PH,URINE 6.5 (5-9); PROTEIN,URINE NEGATIVE (NEGATIVE)
[2022-10-04 04:29] LABS: BACTERIA,URINE NEGATIVE /HPF
[2022-10-04 04:40] LABS: BASOPHILS % (AUTO) 0 % (0-10); EOSINOPHILS % (AUTO) 0 % (0-10); HEMATOCRIT 37 % (35-52); HEMOGLOBIN 12.9 g/dL (11.5-16.0); LYMPHOCYTES # (AUTO) 1.2 10^3/uL (1.0-4.0); LYMPHOCYTES % (AUTO) 17 % (12-44); MEAN CORPUSCULAR HEMOGLOBIN 31 pg (25-34); MEAN CORPUSCULAR HGB CONC 35 g/dL (32-36); MEAN CORPUSCULAR VOLUME 88 fL (80-99); MEAN PLATELET VOLUME 10.3 fL (9.0-12.2); MONOCYTES # (AUTO) 0.3 10^3/uL (0.0-1.0); MONOCYTES % (AUTO) 4 % (0-12); NEUTROPHILS # (AUTO) 5.3 10^3/uL (1.8-7.8); NEUTROPHILS % (AUTO) 77 % (42-75); PLATELET COUNT 204 10^3/uL (130-400)
[2022-10-04 04:58] LABS: POTASSIUM 4.2 MMOL/L (3.6-5.0)
[2022-10-04 04:59] LABS: CALCIUM 9.2 MG/DL (8.5-10.1)
[2022-10-04 05:03] LABS: CREATININE SERUM 0.67 MG/DL (0.60-1.30)
[2022-10-04 05:06] LABS: MAGNESIUM 2.1 MG/DL (1.6-2.4)
[2022-10-04 05:15] VITALS: BP 125/77
== END 2022-10-04 05:15 | disposition home or self-care (01) ==
LOC: EDUNIT# 03:42 → ER 03:43
DX: R73.03 Prediabetes (principal); R53.1 Weakness; F31.9 Bipolar disorder, unspecified; N39.0 Urinary tract infection, site not specified; E66.9 Obesity, unspecified; Z79.899 Other long term (current) drug therapy; Z68.41 Body mass index [BMI] 40.0-44.9, adult
CPT/HCPCS: 36415; 80048; 81000; 82947; 83735; 85025